=== PATIENT | female | born 1935 | race Caucasian/White ===

== ENCOUNTER 2020-12-12 07:37 | Inpatient (IN) ==
[~2020-12-12 07:37] MED LIST: IPRATROPIUM/ALBUTEROL 3 ML AMPUL.NEB NEB ONE
[2020-12-12] MEDS ORDERED: IOPAMIDOL 100 ML BOTTLE IV ONE (07:38)
[2020-12-12] MEDS ORDERED: IPRATROPIUM/ALBUTEROL 3 ML AMPUL.NEB NEB ONE (08:00)
[2020-12-12] MEDS ORDERED: PROCHLORPERAZINE 10 MG/2 ML VIAL IV ONE (08:05)
[2020-12-12] MEDS ORDERED: morphine 2 MG/ML VIAL IV ONE (08:05)
--- NOTE | 2020-12-12 08:13 | Emergency Department Note ---
SOB HPI General Chief Complaint: Shortness of Breath/Dyspnea Stated Complaint: shortnesss of breath/chest pain Time Seen by Provider: 12/12/20 07:51 Source: patient, EMS, RN notes reviewed and old records reviewed Mode of arrival: EMS Limitations: no limitations History of Present Illness HPI Narrative: Narrative: 85-year-old delightful female complains of increasing shortness of breath for the last 2 days. Night prior to arrival her shortness of breath increased considerably and she developed right-sided chest pain below her right breast that was worse with deep inspiration and movement and felt like her pulmonary embolism pain. She denies any fevers or chills she denies any cough she denies any hemoptysis she denies any sputum production. She has had no nausea or vomiting no sore throat no abdominal pain no bowel or bladder changes. She had outpatient spinal surgery on 11/29 week prior to arrival. She is on home O2 and she has been increasing the amount of oxygen she is using over the last 2 days. MD Complaint: shortness of breath and pain with inspiration Onset (ago): day(s) (2) Context: other (Back Surgery 11/29, outpatient) Severity: moderate Consistency/Duration: constant Improves with: oxygen Worsens with: inspiration Known history of: PE and other (A Fib) Associated symptoms: Reports chest pain, pain with inspiration, orthopnea, lower extremity pain and palpitations; Denies fever, cough, wheezing, sputum prod uction, polyuria, polydipsia, parasthesias, carpopedal spasm, hemoptysis, diaphoresis, nausea/vomiting, syncope, abdominal pain, rash and sense of impending doom Treatment prior to arrival: oxygen Related Data Home oxygen amount: 4 liters Home Medications Medication Instructions Recorded Confirmed acetaminophen 325 mg tablet See Rx Instructions PO .COMPLEX PRN 03/03/20 08/03/20 warfarin 10 mg tablet See Rx Instructions PO .COMPLEX 03/03/20 08/03/20 celecoxib 50 mg capsule 50 mg PO QDAY 08/03/20 08/03/20 Previous Rx's Medication Instructions Recorded enoxaparin 30 mg/0.3 mL 30 mg SUBCUT .COMPLEX #3.3 ml 11/30/20 subcutaneous syringe hydrocodone 5 mg-acetaminophen 325 1 - 2 tab PO Q4H PRN #20 tab 12/06/20 mg tablet Allergies Allergy/AdvReac Type Severity Reaction Status Date / Time adhesive tape Allergy Intermediate Hives Verified 12/12/20 07:48 epinephrine AdvReac Mild Anxiety Verified 12/12/20 07:48 Review of Systems ROS ROS Narrative: Narrative: Constitutional: Denies fever, chills, weakness and sweats Eyes: Denies vision change ENT ED: Denies throat pain Cardiovascular: Reports chest pain, palpitations, dyspnea on exertion, orthopnea, edema and paroxysmal nocturnal dyspnea; Denies syncope Respiratory: Reports shortness of breath; Denies cough, wheezes, phlegm, hemoptysis and stridor Gastrointestinal: Denies abdominal pain Genitourinary: Denies dysuria Musculoskeletal: Reports back pain Integumentary: Denies rash Neurological: Denies headache Psychiatric: Denies depression Endocrine: Denies fatigue Hematological/Lymphatic: Denies easy bruising Allergic/Immunologic: Denies urticaria PFSH Narrative Patient History Narrative: Narrative: Medical/Surgical/Family History All Active Problems (Updated 12/12/20 @ 13:31 by Karthikeyan Patel MD) CHF (congestive heart failure) (Acute) Lumbar stenosis with neurogenic claudication (Chronic) Personal history of other malignant neoplasm of skin (Chronic) Pulmonary embolism (Chronic ~2002) Radiculopathy, lumbar region (Chronic) Pain in left hip (Chronic) Radiculopathy, lumbosacral region (Chronic) Lightheadedness (Acute) Atrial fibrillation (Acute) Elevated LFTs (Acute) Dehydration (Acute) Obesity (BMI 30.0-34.9) (Chronic) Primary localized osteoarthritis of left hip (Chronic) Knee injury (Acute) Periorbital ecchymosis (Acute) Anticoagulant long-term use (Chronic) Medical History Anticoagulant long-term use coumadin, prior PE Lumbar stenosis with neurogenic claudication Obesity (BMI 30.0-34.9) Pain in left hip Personal history of other malignant neoplasm of skin Primary localized osteoarthritis of left hip Continue PT and pain management, d/c plan for home tomorrow Pulmonary embolism (~2002) X2 Radiculopathy, lumbar region Radiculopathy, lumbosacral region Surgical History History of surgery LESI #2 L3-4 w/o sed 02/16/20 LESI #1 L3-4 w/o sed 11/05/2019 TF BONY #2 Lt L4-5, L5-S1 w/o sed 12/26/17 LESI #1 L4-5 w/o sed 10/16/2017 Hip Joint Injection, left w/o sed 12/27/2016 TF BONY #1 L4-5, Left w/o sed 11/26/2016 TF BONY #1 L4-5, Right w/sed 02/01/2016 Intraarticular Joint Injection, Right w/o sed 05/12/2015 Intraarticular hip Injection, Right w/o sed 03/22/2015 Family History Other No pertinent family history Social History Smoking Status: Former smoker Exam Narrative Narrative: Narrative: General Limitations: no limitations General appearance: Present alert and in no apparent distress Head Head: Present atraumatic and normocephalic Eye Eye: Present normal appearance, PERRL and EOMI ENT ENT: Present normal exam and mucous membranes moist Neck Neck: Present normal inspection and full ROM Chest Chest: Present normal inspection and tenderness; Absent rash Respiratory Respiratory: Present normal lung sounds bilaterally and wheezes; Absent respiratory distress Cardiovascular Cardiovascular: Present regular rate, irregular rhythm and systolic murmur Adbominal Abdominal: Present soft; Absent distention, tenderness, guarding and rebound Extremities Extremities: Present normal inspection, full ROM and pretibial edema; Absent tenderness and pedal edema Back Back: Present normal inspection; Absent CVA tenderness (R) and CVA tenderness (L) Neurological Neurological: Present alert and oriented X3 Psychiatric Psychiatric: Present normal affect and normal mood Skin Skin: Present warm (WNL); Absent rash Course Vital Signs Vital signs: Vital Signs Temperature 97.9 F 12/12/20 07:44 Pulse Rate 84 12/12/20 07:44 Respiratory Rate 22 12/12/20 07:44 Blood Pressure 135/84 12/12/20 07:44 Pulse Oximetry (%) 93 12/12/20 07:44 Temperature 97.9 F 12/12/20 07:44 Pulse Rate 86 12/12/20 12:35 Respiratory Rate 17 12/12/20 12:35 Blood Pressure 106/70 12/12/20 12:35 Pulse Oximetry (%) 93 12/12/20 12:35 MDM MDM Narrative Medical decision making narrative: Narrative: 85-year-old female with complaints of shortness of breath and increased oxygen requirements at home. Patient had orthopnea PND and increased oxygen requirements. Chest x-ray shows increased interstitial infiltrates radiology was worried about pneumonia but she has had no fevers or chills no cough and has a normal white count I think this is less likely and I think it represents congestive heart failure BNP is elevated which also is suggestive of congestive heart failure. Patient received Lasix and when we attempted to ambulate the patient the pulse ox dropped into the low 80 percentiles. Diagnosis is acute dyspnea to his congestive heart failure the patient has been addressed for the possibility of PE but I find no signs or symptoms or suggestion of PE from the D-dimer or CT scan. Lab Data Lab results reviewed: Yes I reviewed the patient's lab results. Result diagrams: 12/12/20 08:16 12/12/20 08:16 Labs: Lab Results 12/12/20 12/12/20 12/12/20 Range/Units 08:16 08:16 08:16 WBC 4.6 (4.5-11.0) K/mcL RBC 4.88 (4.00-5.20) M/mcL Hgb 13.5 (12.0-15.0) g/dL Hct 48.2 H (36.0-48.0) % MCV 98.8 (80.0-100.0) fL MCH 27.7 (26.0-34.0) pg MCHC 28.0 L (31.0-36.0) g/dL RDW 13.6 (11.5-14.5) % Plt Count 98 L (140-440) K/mcL MPV 10.8 H (7.4-10.4) fL Neut % (Auto) 65.4 (38.0-78.0) % Lymph % (Auto) 15.1 (15.0-49.0) % [place] % (Auto) 16.8 H (1.0-12.0) % Eos % (Auto) 2.0 (0.0-7.0) % Baso % (Auto) 0.7 (0.0-2.0) % Lymph # (Auto) 0.69 L (1.50-4.80) K/mcL [place] # (Auto) 0.77 (0.10-0.90) K/mcL Eos # (Auto) 0.09 (0.00-0.70) K/mcL Baso # (Auto) 0.03 (0.00-0.20) K/mcL Absolute Neutrophils 3.00 (1.80-8.00) K/mcL PT 17.8 H (11.9-14.5) sec INR 1.4 H (0.9-1.1) D-Dimer 0.45 (0.27-0.50) ug/mL VBG Lactic Acid (0.5-2.0) mmol/L Sodium 141 (133-145) mmol/L Potassium 4.4 (3.3-5.1) mmol/L Chloride 101 (96-108) mmol/L Carbon Dioxide 34 H (22-30) mmol/L Anion Gap 6.0 L (8.0-16.0) BUN 14 (8-23) mg/dL Creatinine 0.8 (0.6-1.1) mg/dL POC Creatinine 0.8 (0.6-1.2) mg/dL GFR Calculation 68 Glucose 88 (70-105) mg/dL Calcium 8.9 (8.6-10.4) mg/dL Total Bilirubin 0.9 (0.1-1.0) mg/dL AST 30 (<32) U/L ALT 26 (<40) U/L Alkaline Phosphatase 87 (39-117) U/L Troponin T (<0.03) ng/mL NT-Pro-B Natriuret Pep 1091.0 H (<450.0) pg/mL Total Protein 6.7 (5.9-8.4) gm/dL Albumin 3.5 (3.2-5.2) gm/dL Globulin 3.2 (2.2-3.7) gm/dL Albumin/Globulin Ratio 1.1 (1.0-2.3) Urine Color Urine Appearance (Clear) Urine pH (5.0-9.0) Ur Specific [place] (1.000-1.035) Urine Protein (Negative) mg/dL Urine Glucose (UA) (Negative) mg/dL Urine Ketones (Negative) mg/dL Urine Occult Blood (Negative) mg/dL Urine Nitrate (Negative) Urine Bilirubin (Negative) mg/dL Urine Urobilinogen mg/dL Ur Leukocyte Esterase (Negative) /ug Ur Culture Indicated? 12/12/20 12/12/20 12/12/20 Range/Units 08:16 08:16 10:02 WBC (4.5-11.0) K/mcL RBC (4.00-5.20) M/mcL Hgb (12.0-15.0) g/dL Hct (36.0-48.0) % MCV (80.0-100.0) fL MCH (26.0-34.0) pg MCHC (31.0-36.0) g/dL RDW (11.5-14.5) % Plt Count (140-440) K/mcL MPV (7.4-10.4) fL Neut % (Auto) (38.0-78.0) % Lymph % (Auto) (15.0-49.0) % [place] % (Auto) (1.0-12.0) % Eos % (Auto) (0.0-7.0) % Baso % (Auto) (0.0-2.0) % Lymph # (Auto) (1.50-4.80) K/mcL [place] # (Auto) (0.10-0.90) K/mcL Eos # (Auto) (0.00-0.70) K/mcL Baso # (Auto) (0.00-0.20) K/mcL Absolute Neutrophils (1.80-8.00) K/mcL PT (11.9-14.5) sec INR (0.9-1.1) D-Dimer (0.27-0.50) ug/mL VBG Lactic Acid 0.7 (0.5-2.0) mmol/L Sodium (133-145) mmol/L Potassium (3.3-5.1) mmol/L Chloride (96-108) mmol/L Carbon Dioxide (22-30) mmol/L Anion Gap (8.0-16.0) BUN (8-23) mg/dL Creatinine (0.6-1.1) mg/dL POC Creatinine (0.6-1.2) mg/dL GFR Calculation Glucose (70-105) mg/dL Calcium (8.6-10.4) mg/dL Total Bilirubin (0.1-1.0) mg/dL AST (<32) U/L ALT (<40) U/L Alkaline Phosphatase (39-117) U/L Troponin T < 0.01 (<0.03) ng/mL NT-Pro-B Natriuret Pep (<450.0) pg/mL Total Protein (5.9-8.4) gm/dL Albumin (3.2-5.2) gm/dL Globulin (2.2-3.7) gm/dL Albumin/Globulin Ratio (1.0-2.3) Urine Color Yellow Urine Appearance Clear (Clear) Urine pH 8.0 (5.0-9.0) Ur Specific [place] 1.044 (1.000-1.035) Urine Protein Negative (Negative) mg/dL Urine Glucose (UA) Negative (Negative) mg/dL Urine Ketones Negative (Negative) mg/dL Urine Occult Blood Negative (Negative) mg/dL Urine Nitrate Negative (Negative) Urine Bilirubin Negative (Negative) mg/dL Urine Urobilinogen 4.0 A mg/dL Ur Leukocyte Esterase Negative (Negative) /ug Ur Culture Indicated? No Radiology Data Radiology results reviewed: Yes I reviewed the patient's radiology results. EKG Data EKG #1: Rate: normal (85) Rhythm: A.Fib [place]/QRS: LAHB/LAFB Interpretation: no acute changes Pulse Oximetry Data Pulse Ox %: 92 Interpretation: 92% on 4 L nasal cannula hypoxic. Discharge Plan Patient/Caregiver Discharge Instructions Pt seen by KILN HAND/PA only: No Clinical Impression: CHF (congestive heart failure) Patient Disposition: Xfer As Inpt ([facility]) Follow up with: Adrianna Rachel MD [Primary Care Provider] - Prescriptions: No Action celecoxib [Celebrex] 50 mg capsule 50 mg PO QDAY RF: 0 hydrocodone-acetaminophen 5-325 mg tablet 1 - 2 tab PO Q4H PRN (Reason: pain) Qty: 20 RF: 0 enoxaparin [Lovenox] 30 mg/0.3 mL syringe 30 mg subcut .COMPLEX Qty: 3.3 RF: 0 warfarin 10 mg tablet See Rx Instructions PO .COMPLEX RF: 0 acetaminophen 325 mg tablet See Rx Instructions PO .COMPLEX PRN (Reason: Pain) RF: 0
[2020-12-12 08:37] LABS: POC Creatinine 0.8 mg/dL (0.6-1.2)
[2020-12-12 09:14] LABS: Basophils # (Auto) 0.03 K/mcL (0.00-0.20); Basophils % (Auto) 0.7 % (0.0-2.0); Eosinophils # (Auto) 0.09 K/mcL (0.00-0.70); Hematocrit 48.2 % (36.0-48.0); Hemoglobin 13.5 g/dL (12.0-15.0); Lymphocytes # (Auto) 0.69 K/mcL (1.50-4.80); Lymphocytes % (Auto) 15.1 % (15.0-49.0); Mean Cell Volume 98.8 fL (80.0-100.0); Mean Platelet Volume 10.8 fL (7.4-10.4); Monocytes # (Auto) 0.77 K/mcL (0.10-0.90); Monocytes % (Auto) 16.8 % (1.0-12.0); Neutrophils % (Auto) 65.4 % (38.0-78.0); Platelet Count 98 K/mcL (140-440); RBC 4.88 M/mcL (4.00-5.20); Red Cell Distribution Width 13.6 % (11.5-14.5); WBC 4.6 K/mcL (4.5-11.0)
[2020-12-12 09:26] LABS: ALT/SGPT 26 U/L (<40); AST/SGOT 30 U/L (<32); Albumin 3.5 gm/dL (3.2-5.2); Albumin/Globulin Ratio 1.1 (1.0-2.3); Alkaline Phosphatase 87 U/L (39-117); Bilirubin,Total 0.9 mg/dL (0.1-1.0); Blood Urea Nitrogen 14 mg/dL (8-23); Calcium 8.9 mg/dL (8.6-10.4); Carbon Dioxide 34 mmol/L (22-30); Chloride 101 mmol/L (96-108); Globulin 3.2 gm/dL (2.2-3.7); Glomerular Filtration Rate 68; Glucose 88 mg/dL (70-105); INR 1.4 (0.9-1.1); Prothrombin Time 17.8 sec (11.9-14.5)
--- NOTE | 2020-12-12 10:15 | Cat Scan Report ---
CLINICAL INFORMATION: Right side chest pain with dyspnea COMPARISON: None. TECHNIQUE: 80ml of Isovue-370 were injected intravenously. Using SmartPrep to maximize pulmonary artery opacification, .625mm helical slices were obtained from the lung apices through the lung bases. Following reconstruction, 2.5 mm sagittal, coronal, and axial reformations were processed. The exam was reviewed at mediastinal, lung, and bone windows. The exam was performed using radiation dose optimization techniques including, but not limited to, automated exposure control, adjustment of the mA and/or kV according to patient size and use of iterative reconstruction technique. FINDINGS: Mediastinal windows show the heart is moderately enlarged with scattered calcific/fibrofatty atherosclerotic plaque in the coronary arteries. Moderate aortic valve calcification and minimal mitral valve calcification also noted. Thoracic aorta is normal in diameter. The central pulmonary arteries are mildly enlarged: the main pulmonary diameter 3.6 cm. Findings are suggestive, but not diagnostic, of pulmonary hypertension. Pulmonary arteries are opacified: no emboli identified. There is no adenopathy in the mediastinal, hilar or axillary regions. Small hiatal hernia noted. Thyroid is unremarkable. Pulmonary parenchymal windows show mild chronic bronchitis with elevated lung volumes wall thickening and dilatation of bronchi. There is also mosaic perfusion pattern throughout both lungs most compatible with superimposed small airways disease. Moderate patchy mixed alveolar/interstitial infiltrate throughout the left lower lobe is appreciated. Subsegmental atelectasis in the posterior segment left upper lobe along the major fissure is also appreciated. Small left pleural effusion noted. Subsegmental atelectasis present in the posterior right lower lobe. Bones and soft tissues the chest demonstrate moderate broad C6-7 disc spur complex resulting in severe bilateral lateral recess/ IV foraminal narrowing impinging impinging the C7 nerve roots. There is moderate central canal stenosis. Minimal chronic wedging mid lower thoracic vertebral bodies with endplate irregularity is compatible with mild chronic Scheuermann's disease noted. No soft tissue abnormality. Images should the superior abdomen show no abnormality IMPRESSION: 1. No evidence of pulmonary embolus. Mild enlargement of the central pulmonary arteries is suggestive of pulmonary hypertension related to chronic bronchitis. 2. Small patchy infiltrate left lower lobe and small effusion. Pneumonia suspected. There is minor atelectasis posterior right lower lobe. 3. Small hiatal hernia. 4. Moderate cardiomegaly with heavy calcification aortic valve and mild mitral valve calcification. There is minimal atherosclerotic plaque scattered in the coronary arteries. 5. C6-7: Moderate broad disc spur complex resulting in severe bilateral lateral recess/IV foraminal narrowing impinging the exiting C7 nerve roots. Moderate central canal stenosis Interpreted and Authenticated by: Leonid Magana 12/12/20
[2020-12-12] MEDS ORDERED: FUROSEMIDE 20 MG/2 ML VIAL IV ONE (10:26)
[2020-12-12 11:12] LABS: Appearance,Urine CLEAR (Clear); Bilirubin,Urine Negative (Negative); Color,Urine YELLOW; Culture Indicated,Urine No; Glucose,Urine (UA) Negative (Negative); Ketones,Urine Negative (Negative); Leukocyte Esterase,Urine Negative /ug (Negative); Nitrate,Urine Negative (Negative); Protein,Urine Negative (Negative); Specific Gravity,Urine 1.044 (1.000-1.035); Urine Blood Negative (Negative)
--- NOTE | 2020-12-12 13:53 | Internal Med History&Physical ---
HPI History of Present Illness Patient information: Note initiated : 12/12/20 at 1:51 pm Service Date, if different from initiated Date: [] Patient: Ryann Fortune 85 y/o F admitted on for SOB/Chest Pain. Chief Complaint: [] History of present illness: Ms. Fortune is a 85 year old F Presents to the ED with pleuritic chest pain on the right and shortness of breath. She typically wears 2 L of oxygen at night and that has for years. When she arrived for her lumbar procedure she was 80% was told to wear her oxygen today as well. Her daughter who is a therapist has been home with her since the procedure they did increase her oxygen up to 2-1/2 or 3 by the end of the week and then back to 2-1/2 her daughter left . Patient says she developed on right side chest pain on Saturday and today it was much worse and she also noted. Chest pain is worse breath on her lungs in the she was placed on 6 L by EMS. She was weaned down to 3 L of oxygen ED but an ABG still showed that she was hypoxic. On Saturday patient had an interspinous spacer placement by Ddr. Reilly. He denies fevers and chills she denies coughing or being around anyone is been sick. She has some which is. No change. Work-up in the ED CTA which showed no PE but did show chronic bronchitis changes. small infiltrate left lower lobe as well as a small effusion right lower lobe. Atelectasis noted in the right lower lobe and left. Patient denies feeling wheezy although in the ED the ER physician noted some wheezing. Patient did get a DuoNeb treatment but PFSH PFSH All Active Problems (Updated 12/12/20 @ 13:31 by Karthikeyan Patel MD) CHF (congestive heart failure) (Acute) Lumbar stenosis with neurogenic claudication (Chronic) Personal history of other malignant neoplasm of skin (Chronic) Pulmonary embolism (Chronic ~2002) Radiculopathy, lumbar region (Chronic) Pain in left hip (Chronic) Radiculopathy, lumbosacral region (Chronic) Lightheadedness (Acute) Atrial fibrillation (Acute) Elevated LFTs (Acute) Dehydration (Acute) Obesity (BMI 30.0-34.9) (Chronic) Primary localized osteoarthritis of left hip (Chronic) Knee injury (Acute) Periorbital ecchymosis (Acute) Anticoagulant long-term use (Chronic) Medical History Anticoagulant long-term use coumadin, prior PE Lumbar stenosis with neurogenic claudication Obesity (BMI 30.0-34.9) Pain in left hip Personal history of other malignant neoplasm of skin Primary localized osteoarthritis of left hip Continue PT and pain management, d/c plan for home tomorrow Pulmonary embolism (~2002) X2 Radiculopathy, lumbar region Radiculopathy, lumbosacral region Surgical History History of surgery LESI #2 L3-4 w/o sed 02/16/20 LESI #1 L3-4 w/o sed 11/05/2019 TF BONY #2 Lt L4-5, L5-S1 w/o sed 12/26/17 LESI #1 L4-5 w/o sed 10/16/2017 Hip Joint Injection, left w/o sed 12/27/2016 TF BONY #1 L4-5, Left w/o sed 11/26/2016 TF BONY #1 L4-5, Right w/sed 02/01/2016 Intraarticular Joint Injection, Right w/o sed 05/12/2015 Intraarticular hip Injection, Right w/o sed 03/22/2015 Family History Other No pertinent family history Social History smoking status: Former smoker MEDS/ALLERGIES Home Medications and Allergies Home Medications Medication Instructions Recorded Confirmed Type acetaminophen 325 mg tablet See Rx Instructions PO .COMPLEX PRN 03/03/20 0 History warfarin 10 mg tablet See Rx Instructions PO .COMPLEX 03/03/20 08/03/20 History celecoxib 50 mg capsule 50 mg PO QDAY 08/03/20 08/03/20 History enoxaparin 30 mg/0.3 mL 30 mg SUBCUT .COMPLEX #3.3 ml 11/30/20 11/30/20 Rx subcutaneous syringe hydrocodone 5 mg-acetaminophen 325 1 - 2 tab PO Q4H PRN #20 tab 12/06/20 12/06/20 Rx mg tablet Allergies Allergy/AdvReac Type Severity Reaction Status Date / Time adhesive tape Allergy Intermediate Hives Verified 12/12/20 07:48 epinephrine AdvReac Mild Anxiety Verified 12/12/20 07:48 EXAM Constitutional Vitals: Temp Pulse Resp BP Pulse Ox 97.9 F 86 17 106/70 93 12/12/20 07:44 12/12/20 12:35 12/12/20 12:35 12/12/20 12:35 12/12/20 12:35 Exam: General: Alert, Awake, No acute Distress, obse Eyes/N/T: EOMI, PERRL, HJR noted Head/Neck: neck supple, normocephalic atraumatic CV: irreg irreg, 2/6SM, normal s1/s2 Pulm: Clear b/l, no wheezing/rhonchi/rales Abd: soft, nontender, +BS x4 Ext: no clubbing/cyanosis, 1+ b/l LE edema Neuro: Alert, no focal deficits, moves all extremities, CN 2-12 grossly intact, symmetrical strength b/l upper/lower, sensations intact b/l upper/lower Skin: warm/dry DATA Data Completed and Pending Labs: Labs from last 24 hours 12/12/20 12/12/20 12/12/20 10:02 08:16 08:16 WBC RBC Hgb Hct MCV MCH MCHC RDW Plt Count MPV Neut % (Auto) Lymph % (Auto) [place] % (Auto) Eos % (Auto) Baso % (Auto) Lymph # (Auto) [place] # (Auto) Eos # (Auto) Baso # (Auto) Absolute Neutrophils PT INR D-Dimer VBG Lactic Acid 0.7 Sodium Potassium Chloride Carbon Dioxide Anion Gap BUN Creatinine POC Creatinine GFR Calculation Glucose Calcium Total Bilirubin AST ALT Alkaline Phosphatase Troponin T < 0.01 NT-Pro-B Natriuret Pep Total Protein Albumin Globulin Albumin/Globulin Ratio Urine Color Yellow Urine Appearance Clear Urine pH 8.0 Ur Specific [place] 1.044 Urine Protein Negative Urine Glucose (UA) Negative Urine Ketones Negative Urine Occult Blood Negative Urine Nitrate Negative Urine Bilirubin Negative Urine Urobilinogen 4.0 A Ur Leukocyte Esterase Negative Ur Culture Indicated? No 12/12/20 12/12/20 12/12/20 08:16 08:16 08:16 WBC 4.6 RBC 4.88 Hgb 13.5 Hct 48.2 H MCV 98.8 MCH 27.7 MCHC 28.0 L RDW 13.6 Plt Count 98 L MPV 10.8 H Neut % (Auto) 65.4 Lymph % (Auto) 15.1 [place] % (Auto) 16.8 H Eos % (Auto) 2.0 Baso % (Auto) 0.7 Lymph # (Auto) 0.69 L [place] # (Auto) 0.77 Eos # (Auto) 0.09 Baso # (Auto) 0.03 Absolute Neutrophils 3.00 PT 17.8 H INR 1.4 H D-Dimer 0.45 VBG Lactic Acid Sodium 141 Potassium 4.4 Chloride 101 Carbon Dioxide 34 H Anion Gap 6.0 L BUN 14 Creatinine 0.8 POC Creatinine 0.8 GFR Calculation 68 Glucose 88 Calcium 8.9 Total Bilirubin 0.9 AST 30 ALT 26 Alkaline Phosphatase 87 Troponin T NT-Pro-B Natriuret Pep 1091.0 H Total Protein 6.7 Albumin 3.5 Globulin 3.2 Albumin/Globulin Ratio 1.1 Urine Color Urine Appearance Urine pH Ur Specific [place] Urine Protein Urine Glucose (UA) Urine Ketones Urine Occult Blood Urine Nitrate Urine Bilirubin Urine Urobilinogen Ur Leukocyte Esterase Ur Culture Indicated? A/P Narrative A/P Narrative: A: *Acute hypoxic respiratory failure: multifactorial>?peripheral PE not found on CT (right pleuritic cp similar to when had PE)+ Atelectasis + suspected CHF + underlying COPD lung changes. -no pneumonia clinically -was subtherapeutic with her warfarin *suspected acute on chronic diastolic CHF *likely COPD based on smoking history and image findings *supp O2 at home: has been on 2L@night for 4-years, but prior to procedure was noted to be hypoxic on vital check, pt was asymptomatic. was told to wear day/night O2. *Pulm HTN: *AFib: Subtherapeutic warfarin *Thrombocytopenia, chronic: *Obesity: * P: -O2 supp, placed on bipap for several hours after admit -Lovenox warfarin bridge -f/u ABG -IS - -pt/ot -f/u with pulmonology for PFT's -ppx: lovenox-warfarin per pharm full code Time Spent With Patient Time: Total time spent is greater than 50% in coordination of care (as documented) at patient's floor/unit and/or counseling patient:
[2020-12-12] MEDS ORDERED: LORazepam 2 MG/ML VIAL IV ONE (14:47)
[2020-12-12] MEDS ORDERED: ENOXAPARIN 120 MG/0.8 ML SYRINGE SQ ONE (14:47)
[2020-12-12] MEDS ORDERED: IPRATROPIUM/ALBUTEROL 3 ML AMPUL.NEB NEB PRN (14:47)
[2020-12-12] MEDS ORDERED: POTASSIUM CHLORIDE 20 MEQ TABLET PO PRN ×2 (14:47)
[2020-12-12] MEDS ORDERED: IPRATROPIUM/ALBUTEROL 3 ML AMPUL.NEB NEB SCH (14:47)
[2020-12-12] MEDS ORDERED: ONDANSETRON 4 MG/2 ML VIAL IV PRN (14:47)
[2020-12-12] MEDS ORDERED: MAGNESIUM SULFATE 2 GM/50 ML BAG IV PRN (14:47)
[2020-12-12] MEDS ORDERED: SENNOSIDES 1 TABLET PO PRN (14:47)
[2020-12-12] MEDS ORDERED: HYDROcodone/APAP 5/325MG TABLET PO PRN (14:47)
[2020-12-12] MEDS ORDERED: POTASSIUM CHLORIDE 40 MEQ in DEXTROSE 5% IN WATER 500 ML IV PRN (14:47)
[2020-12-12] MEDS ORDERED: WARFARIN 5 MG TABLET PO ONE (17:00)
[2020-12-12] MEDS: 0.9 % SODIUM CHLORIDE 10 ML SYRINGE IV SCH ×2 (19:00→22:07)
[2020-12-12] MEDS: IPRATROPIUM/ALBUTEROL 3 ML AMPUL.NEB NEB SCH (21:12)
[2020-12-12] MEDS: ACETAMINOPHEN 325 MG TABLET PO PRN (22:10)
[2020-12-12] MEDS: DOCUSATE SODIUM 100 MG CAPSULE PO SCH (22:10)
[2020-12-13] MEDS: 0.9 % SODIUM CHLORIDE 10 ML SYRINGE IV SCH ×3 (06:07→21:30)
[2020-12-13 06:54] LABS: Basophils # (Auto) 0.05 K/mcL (0.00-0.20); Basophils % (Auto) 1.3 % (0.0-2.0); Eosinophils # (Auto) 0.11 K/mcL (0.00-0.70); Eosinophils % (Auto) 2.8 % (0.0-7.0); Hematocrit 45.7 % (36.0-48.0); Hemoglobin 13.2 g/dL (12.0-15.0); Lymphocytes # (Auto) 0.91 K/mcL (1.50-4.80); Lymphocytes % (Auto) 23.5 % (15.0-49.0); Mean Cell Volume 96.2 fL (80.0-100.0); Mean Corpuscular HGB Conc 28.9 g/dL (31.0-36.0); Mean Platelet Volume 11.4 fL (7.4-10.4); Monocytes # (Auto) 0.88 K/mcL (0.10-0.90); Monocytes % (Auto) 22.7 % (1.0-12.0); Neutrophils % (Auto) 49.7 % (38.0-78.0); Platelet Count 92 K/mcL (140-440); RBC 4.75 M/mcL (4.00-5.20); Red Cell Distribution Width 13.5 % (11.5-14.5); WBC 3.9 K/mcL (4.5-11.0)
[2020-12-13 06:59] LABS: INR 1.4 (0.9-1.1); Prothrombin Time 17.8 sec (11.9-14.5)
[2020-12-13 07:30] LABS: ALT/SGPT 19 U/L (<40); AST/SGOT 25 U/L (<32); Albumin 3.4 gm/dL (3.2-5.2); Albumin/Globulin Ratio 1.1 (1.0-2.3); Alkaline Phosphatase 80 U/L (39-117); Bilirubin,Direct 0.3 mg/dL (<0.3); Bilirubin,Total 0.9 mg/dL (0.1-1.0); Blood Urea Nitrogen 14 mg/dL (8-23); Carbon Dioxide 35 mmol/L (22-30); Chloride 100 mmol/L (96-108); Globulin 3.1 gm/dL (2.2-3.7); Glomerular Filtration Rate 80; Glucose 77 mg/dL (70-105); Lactate Dehydrogenase 223 U/L (135-225); Phosphorous 3.6 mg/dL (2.5-4.5); Triglycerides 53 mg/dL (<150); Uric Acid 4.9 mg/dL (2.5-8.0)
--- NOTE | 2020-12-13 07:46 | Internal Med Progress Note ---
SUBJECTIVE Subjective Patient information: Note initiated : 12/13/20 at 7:42 am Service Date, if different from initiated Date: [] Patient: Ryann Fortune 85 y/o F admitted on 12/12/20 for SOB/Chest Pain. Chief Complaint: [] Interval history: History of present illness: Ms. Fortune is a 85 year old F Presents to the ED with pleuritic chest pain on the right and shortness of breath. She typically wears 2 L of oxygen at night and that has for years. When she arrived for her lumbar procedure she was 80% was told to wear her oxygen today as well. Her daughter who is a therapist has been home with her since the procedure they did increase her oxygen up to 2-1/2 or 3 by the end of the week and then back to 2-1/2 her daughter left . Patient says she developed on right side chest pain on Saturday and today it was much worse and she also noted. Chest pain is worse breath on her lungs in the she was placed on 6 L by EMS. She was weaned down to 3 L of oxygen ED but an ABG still showed that she was hypoxic. On Saturday patient had an interspinous spacer placement by Ddr. Reilly. He denies fevers and chills she denies coughing or being around anyone is been sick. She has some which is. No change. Work-up in the ED CTA which showed no PE but did show chronic bronchitis changes. small infiltrate left lower lobe as well as a small effusion right lower lobe. Atelectasis noted in the right lower lobe and left. Patient denies feeling wheezy although in the ED the ER physician noted some wheezing. Patient did get a DuoNeb treatment but 12/13 No overnight event or new complaints. Right-sided chest pain is improving. Review of Systems: denies headache/fever/chills/nausea/vomiting/abdominal pain/cough/diarrhea. Otherwise see above. Constitutional Vitals: Vital Signs Temp Pulse Resp BP Pulse Ox 97.8 F 74 15 122/65 91 12/13/20 04:10 12/13/20 06:00 12/13/20 06:00 12/13/20 06:00 12/13/20 07:28 Period Temp Pulse Resp BP Sys/[place] Pulse Ox Last 24 Hr 97.2 F-98.3 F 60-100 12-23 83-135/51-93 90-98 Intake and Output 12/12/20 12/13/20 12/13/20 21:59 05:59 13:59 Intake Total 120 Output Total 400 325 200 Balance -400 -205 -200 Weight 115.893 kg Intake & Output: Intake & Output 12/12/20 12/13/20 12/13/20 21:59 05:59 13:59 Intake Total 120 Output Total 400 325 200 Balance -400 -205 -200 Weight 115.893 kg Intake: Oral 120 Output: Void Amount 400 325 200 Other: Meal Dinner Percent of Meal Consumed 100% Feeding Ability Independent Urine Appearance Clear Urine Color Dark Yellow Dark Yellow Bright Yellow Urine Odor Normal # Voids 1 Exam: General: Alert, Awake, No acute Distress, obese Eyes/N/T: EOMI, Head/Neck: neck supple, CV: irreg irreg, 2/6SM, Pulm: Clear b/l, no wheezing/rhonchi/rales Abd: soft, nontender, +BS x4 Ext: no clubbing/cyanosis, 1+ b/l LE edema Neuro: Alert, no focal deficits, moves all extremities, Skin: warm/dry OBJ DATA Labs CBC & Chem 7: 12/13/20 05:13 12/13/20 05:13 Labs: Abnormal Lab Results 12/13/20 12/13/20 12/13/20 05:13 05:13 05:13 WBC 3.9 L Hct MCHC 28.9 L Plt Count 92 L MPV 11.4 H [place] % (Auto) 22.7 H Lymph # (Auto) 0.91 L PT 17.8 H INR 1.4 H Carbon Dioxide 35 H Anion Gap 6.0 L Direct Bilirubin 0.3 H NT-Pro-B Natriuret Pep Urine Urobilinogen 12/12/20 12/12/20 12/12/20 10:02 08:16 08:16 WBC Hct 48.2 H MCHC 28.0 L Plt Count 98 L MPV 10.8 H [place] % (Auto) 16.8 H Lymph # (Auto) 0.69 L PT 17.8 H INR 1.4 H Carbon Dioxide Anion Gap Direct Bilirubin NT-Pro-B Natriuret Pep Urine Urobilinogen 4.0 A 12/12/20 08:16 WBC Hct MCHC Plt Count MPV [place] % (Auto) Lymph # (Auto) PT INR Carbon Dioxide 34 H Anion Gap 6.0 L Direct Bilirubin NT-Pro-B Natriuret Pep 1091.0 H Urine Urobilinogen Meds: Medications Acetaminophen (Acetaminophen 325 Mg Tablet) 650 mg PO Q6HP PRN PRN Reason: PAIN/FEVER > 101 Last Admin: 12/12/20 22:10 Dose: 650 mg Documented by: Hydrocodone Bitart/Acetaminophen (Hydrocodone/Apap 5/325mg Tablet) 1 tab PO Q4HP PRN PRN Reason: PAIN LEVEL 3-6 Albuterol/Ipratropium (Ipratropium/Albuterol 3 Ml Ampul.Neb) 3 ml NEB Q4HP PRN PRN Reason: Shortness Of Breath Albuterol/Ipratropium (Ipratropium/Albuterol 3 Ml Ampul.Neb) 3 ml NEB Q12H [facility] Last Admin: 12/12/20 21:12 Dose: 3 ml Documented by: Docusate Sodium (Docusate Sodium 100 Mg Capsule) 100 mg PO BID [facility] Last Admin: 12/12/20 22:10 Dose: 100 mg Documented by: Enoxaparin Sodium (Enoxaparin 120 Mg/0.8 Ml Syringe) 120 mg SQ BID [facility] Potassium Chloride 40 meq/ (Dextrose) 520 mls @ 130 mls/hr IV UD PRN PRN Reason: Potassium < 3 Magnesium Sulfate (Magnesium Sulfate) 2 gm in 50 mls @ 50 mls/hr IV UD PRN PRN Reason: Magnesium </= 1.6 Ondansetron HCl (Ondansetron 4 Mg/2 Ml Vial) 4 mg IV Q4HP PRN PRN Reason: Nausea And Vomiting Potassium Chloride (Potassium Chloride 20 Meq Tablet) 40 meq PO UD PRN PRN Reason: Potssium is 3-3.5 Potassium Chloride (Potassium Chloride 20 Meq Tablet) 40 meq PO UD PRN PRN Reason: Potassium < 3 Senna (Sennosides 1 Tablet) 2 tab PO DAILYP PRN PRN Reason: Constipation Sodium Chloride (0.9 % Sodium Chloride 10 Ml Syringe) 10 ml IV Q8 [facility] Last Admin: 12/13/20 06:07 Dose: 10 ml Documented by: Warfarin Sodium (Warfarin Per Pharmacy) 1 order PO UD RUTHY A/P Narrative A/P Narrative: A: *Acute hypoxic respiratory failure: multifactorial>?peripheral PE not found on CT (right pleuritic cp & similar to when had PE)+ Atelectasis + suspected CHF + underlying COPD lung changes. -no pneumonia clinically -was subtherapeutic with her warfarin -on 2-4 Oxymask, was on 6L in ED *suspected acute on chronic diastolic CHF: *likely COPD based on smoking history and image findings *supp O2 at home: has been on 2L@night for 4-years, but prior to procedure was noted to be hypoxic on vital check, pt was asymptomatic. was told to wear day/night O2. *Pulm HTN: *AFib: Subtherapeutic warfarin *Thrombocytopenia, chronic: *Obesity: * P: -O2 supp, unable to tolerated bipap on admit -Lovenox warfarin bridge -f/u ABG and CXR -echo pending -prn diuresis -IS -pt/ot -f/u with pulmonology for PFT's and LOREN evaluation -ppx: lovenox-warfarin per pharm (monitor PLT's) full code Time Spent With Patient Time: Total time spent is greater than 50% in coordination of care (as documented) at patient's floor/unit and/or counseling patient: [facility]ALITY VTE Deep Vein Thrombosis/Pulmonary Embolism Present on Admission: No
[2020-12-13] MEDS ORDERED: acetaZOLAMIDE SOD 500 MG VIAL IV ONE (07:51)
[2020-12-13] MEDS: DOCUSATE SODIUM 100 MG CAPSULE PO SCH ×2 (07:52→20:16)
[2020-12-13] MEDS ORDERED: ENOXAPARIN 120 MG/0.8 ML SYRINGE SQ SCH ×2 (09:00→21:00)
[2020-12-13] MEDS ORDERED: FUROSEMIDE 20 MG/2 ML VIAL IV ONE (09:13)
[2020-12-13] MEDS ORDERED: HYDROCHLOROTHIAZIDE 12.5 MG CAPSULE PO ONE (09:13)
[2020-12-13] MEDS: IPRATROPIUM/ALBUTEROL 3 ML AMPUL.NEB NEB SCH ×2 (09:27→20:19)
--- NOTE | 2020-12-13 09:46 | XRay Report ---
CLINICAL INFORMATION: Mild CHF - follow-up COMPARISON: 09/23/2019 FINDINGS: Moderate cardiomegaly is stable. Mediastinum and pulmonary vasculature are unremarkable. Moderate subglottic narrowing noted. Small infiltrate has developed in the left base. Small effusion IMPRESSION: Small infiltrate and effusion developing the left lower lobe Moderate cardiomegaly - no CHF Moderate subglottic narrowing - please correlate with stridor Interpreted and Authenticated by: Leondi Magana 12/13/20
[2020-12-13] MEDS ORDERED: WARFARIN 10 MG PO SCH (14:00)
[2020-12-13] MEDS ORDERED: WARFARIN 5 MG TABLET PO ONE (14:00)
--- NOTE | 2020-12-13 16:53 | Discharge Summary ---
Discharge Provider Provider Patient information: Note initiated : 12/13/20 at 4:51 pm Service Date, if different from initiated Date: [] Patient: Ryann Fortune 85 y/o F admitted on 12/12/20 for SOB/Chest Pain. Chief Complaint: [] Date of admission: 12/12/20 14:44 Discharge date: 12/14/20 Primary care physician: Adrianna Rachel Consults: 12/12/20 Consult to Physician [CONS] Stat Comment: Consulting Provider: Ghulam Morton Reason For Exam: Physician to Consult Discharge Meds Discharge Medications Home Medications acetaminophen 325 mg tablet 325 mg PO Q4-6HP PRN 03/03/20 [History Confirmed 12/12/20 Last Taken Unknown] warfarin 10 mg tablet 10 mg PO MOTUWEFRSA@1400 03/03/20 [History Confirmed 12/12/20 Last Taken 12/10/20 09:00] warfarin 5 mg PO SUTH@1400 12/12/20 [History Confirmed 12/12/20 Last Taken 12/11/20 09:00] enoxaparin [Lovenox] 100 mg SUBCUT Q12H #3 ml 12/14/20 [Rx Last Taken Unknown] COURSE Hospital Course Hospital course: Interval history: History of present illness: Ms. Fortune is a 85 year old F Presents to the ED with pleuritic chest pain on the right and shortness of breath. She typically wears 2 L of oxygen at night and that has for years. When she arrived for her lumbar procedure she was 80% was told to wear her oxygen today as well. Her daughter who is a therapist has been home with her since the procedure they did increase her oxygen up to 2-1/2 or 3 by the end of the week and then back to 2-1/2 her daughter left . Patient says she developed on right side chest pain on Saturday and today it was much worse and she also noted. Chest pain is worse breath on her lungs in the she was placed on 6 L by EMS. She was weaned down to 3 L of oxygen ED but an ABG still showed that she was hypoxic. On Saturday patient had an interspinous spacer placement by Ddr. Reilly. He denies fevers and chills she denies coughing or being around anyone is been sick. She has some which is. No change. Work-up in the ED CTA which showed no PE but did show chronic bronchitis changes. small infiltrate left lower lobe as well as a small effusion right lower lobe. Atelectasis noted in the right lower lobe and left. Patient denies feeling wheezy although in the ED the ER physician noted some wheezing. Patient did get a DuoNeb treatment but 12/13 No overnight event or new complaints. Right-sided chest pain is improving. 12/14 Patient doing well. Oxygenation much improved. Patient stable standpoint able to be discharged. A: *Acute hypoxic respiratory failure: multifactorial>?peripheral PE not found on CT (right pleuritic cp & similar to when had PE)+ Atelectasis + suspected CHF + underlying COPD lung changes. *suspected mild acute on chronic diastolic CHF: -echo with good EF, LVH, RV dilation but good fxn, LAE *likely COPD based on smoking history and image findings *supp O2 at home: has been on 2L@night for 4-years, but prior to procedure was noted to be hypoxic on vital check, pt was asymptomatic. was told to wear day/night O2. *Pulm HTN: *AFib: Subtherapeutic warfarin *Thrombocytopenia, chronic: *Obesity: * Discharge diagnosis: Acute hypoxic respiratory failure COPD possible heart Secondary discharge diagnosis: Patient A. fib thrombocytopenia obesity Time Spent with Patient Time attestation: Total time spent providing and/or coordinating discharge services: Time spent: Greater than 30 minutes EXAM Constitutional Vitals: Temp Pulse Resp BP Pulse Ox 98.3 F 88 21 95/63 96 12/13/20 16:01 12/13/20 16:07 12/13/20 16:07 12/13/20 16:01 12/13/20 16:07 Discharge Data Data Completed and Pending Labs on day of discharge: Labs from last 24 hours 12/13/20 12/13/20 12/13/20 05:13 05:13 05:13 WBC 3.9 L RBC 4.75 Hgb 13.2 Hct 45.7 MCV 96.2 MCH 27.8 MCHC 28.9 L RDW 13.5 Plt Count 92 L MPV 11.4 H Neut % (Auto) 49.7 Lymph % (Auto) 23.5 [place] % (Auto) 22.7 H Eos % (Auto) 2.8 Baso % (Auto) 1.3 Lymph # (Auto) 0.91 L [place] # (Auto) 0.88 Eos # (Auto) 0.11 Baso # (Auto) 0.05 Absolute Neutrophils 1.92 PT 17.8 H INR 1.4 H Sodium 141 Potassium 3.8 Chloride 100 Carbon Dioxide 35 H Anion Gap 6.0 L BUN 14 Creatinine 0.7 GFR Calculation 80 Glucose 77 Uric Acid 4.9 Calcium 9.0 Phosphorus 3.6 Magnesium 2.1 Total Bilirubin 0.9 Direct Bilirubin 0.3 H GGT 23 AST 25 ALT 19 Alkaline Phosphatase 80 Lactate Dehydrogenase 223 Total Protein 6.5 Albumin 3.4 Globulin 3.1 Albumin/Globulin Ratio 1.1 Triglycerides 53 Discharge Plan Patient/Caregiver Discharge Instructions Activity: increase activity as tolerated Diet: Regular Diet Instructions: Heart Failure (GEN), Hypoxia (GEN) Activity Restrictions/Additional Instructions: Referral to see pulmonology in 5 to 14 days for LOREN evaluation and PFTs This discharge packet is provided to you to help keep you informed about your care. We want to ensure you get everything you need when you go home. You will also be receiving a call from us in a few days to follow up with you and see how you are doing since your discharge. This gives us a chance to listen to any concerns you maybe experiencing since you were discharged or any additional needs you may have, as well as providing us feedback on your care experience. We strive to always provide excellent care and thank you for your feedback and for choosing [facility]. Prescriptions: New enoxaparin [Lovenox] 100 mg/mL syringe 100 mg subcut Q12H Qty: 3 RF: 0 Continued warfarin 10 mg tablet 10 mg PO MOTUWEFRSA@1400 RF: 0 acetaminophen 325 mg tablet 325 mg PO Q4-6HP PRN (Reason: Pain) RF: 0 warfarin 5 mg Tablet 5 mg PO SUTH@1400 RF: 0 Follow Up Plan Follow up with: Adrianna Rachel MD [Primary Care Provider] - 12/22/20 10:00 am (Please check in at 9:45) Patient Disposition: Home, Self-Care Prognosis: Fair Overall status at discharge: patient is progressing back to baseline Discharge Orders: Discharge Order (Routine); Ordered 12/14/20 [facility]/Pulmonary Embolism Present on Admission: No
[2020-12-13] MEDS: ACETAMINOPHEN 325 MG TABLET PO PRN (21:40)
[2020-12-14] MEDS: 0.9 % SODIUM CHLORIDE 10 ML SYRINGE IV SCH (05:42)
[2020-12-14 07:17] LABS: Basophils # (Auto) 0.03 K/mcL (0.00-0.20); Basophils % (Auto) 0.8 % (0.0-2.0); Eosinophils # (Auto) 0.09 K/mcL (0.00-0.70); Eosinophils % (Auto) 2.4 % (0.0-7.0); Hematocrit 45.3 % (36.0-48.0); Hemoglobin 13.4 g/dL (12.0-15.0); Lymphocytes # (Auto) 0.86 K/mcL (1.50-4.80); Lymphocytes % (Auto) 22.6 % (15.0-49.0); Mean Corpuscular HGB Conc 29.6 g/dL (31.0-36.0); Mean Platelet Volume 11.1 fL (7.4-10.4); Monocytes # (Auto) 0.74 K/mcL (0.10-0.90); Monocytes % (Auto) 19.5 % (1.0-12.0); Neutrophils % (Auto) 54.7 % (38.0-78.0); Platelet Count 96 K/mcL (140-440); RBC 4.72 M/mcL (4.00-5.20); Red Cell Distribution Width 13.4 % (11.5-14.5); WBC 3.8 K/mcL (4.5-11.0)
[2020-12-14 07:31] LABS: INR 1.6 (0.9-1.1); Prothrombin Time 19.5 sec (11.9-14.5)
--- NOTE | 2020-12-14 07:51 | Internal Med Progress Note ---
SUBJECTIVE Subjective Patient information: Note initiated : 12/14/20 at 7:50 am Service Date, if different from initiated Date: [] Patient: Ryann Fortune 85 y/o F admitted on 12/12/20 for SOB/Chest Pain. Chief Complaint: [] Interval history: History of present illness: Ms. Fortune is a 85 year old F Presents to the ED with pleuritic chest pain on the right and shortness of breath. She typically wears 2 L of oxygen at night and that has for years. When she arrived for her lumbar procedure she was 80% was told to wear her oxygen today as well. Her daughter who is a therapist has been home with her since the procedure they did increase her oxygen up to 2-1/2 or 3 by the end of the week and then back to 2-1/2 her daughter left . Patient says she developed on right side chest pain on Saturday and today it was much worse and she also noted. Chest pain is worse breath on her lungs in the she was placed on 6 L by EMS. She was weaned down to 3 L of oxygen ED but an ABG still showed that she was hypoxic. On Saturday patient had an interspinous spacer placement by Ddr. Reilly. He denies fevers and chills she denies coughing or being around anyone is been sick. She has some which is. No change. Work-up in the ED CTA which showed no PE but did show chronic bronchitis changes. small infiltrate left lower lobe as well as a small effusion right lower lobe. Atelectasis noted in the right lower lobe and left. Patient denies feeling wheezy although in the ED the ER physician noted some wheezing. Patient did get a DuoNeb treatment but 12/13 No overnight event or new complaints. Right-sided chest pain is improving. Review of Systems: denies headache/fever/chills/nausea/vomiting/abdominal pain/cough/diarrhea. Otherwise see above. Constitutional Vitals: Vital Signs Temp Pulse Resp BP Pulse Ox 97.4 F 74 18 116/74 98 12/14/20 04:01 12/14/20 06:01 12/14/20 06:01 12/14/20 06:01 12/14/20 06:01 Period Temp Pulse Resp BP Sys/[place] Pulse Ox Last 24 Hr 97.2 F-98.3 F 69-159 15-29 95-125/57-80 88-99 Intake and Output 12/13/20 12/14/20 12/14/20 21:59 05:59 13:59 Intake Total 520 250 Output Total 575 700 400 Balance -55 -450 -400 Weight 113.942 kg Intake & Output: Intake & Output 12/13/20 12/14/20 12/14/20 21:59 05:59 13:59 Intake Total 520 250 Output Total 575 700 400 Balance -55 -450 -400 Weight 113.942 kg Intake: Oral 520 250 Output: Void Amount 575 700 400 Other: Meal snack Percent of Meal Consumed 100% Feeding Ability Independent Urine Appearance Clear Clear Clear Urine Color Dark Yellow Straw Bright Yellow Urine Odor Normal Normal # Voids 1 1 Exam: General: Alert, Awake, No acute Distress, obese Eyes/N/T: EOMI, Head/Neck: neck supple, CV: irreg irreg, 2/6SM, Pulm: Clear b/l, no wheezing/rhonchi/rales Abd: soft, nontender, +BS x4 Ext: no clubbing/cyanosis, 1+ b/l LE edema Neuro: Alert, no focal deficits, moves all extremities, Skin: warm/dry OBJ DATA Labs CBC & Chem 7: 12/14/20 06:02 12/13/20 05:13 Labs: Abnormal Lab Results 12/14/20 12/14/20 12/13/20 06:02 06:02 05:13 WBC 3.8 L Hct MCHC 29.6 L Plt Count 96 L MPV 11.1 H [place] % (Auto) 19.5 H Lymph # (Auto) 0.86 L PT 19.5 H INR 1.6 H Carbon Dioxide 35 H Anion Gap 6.0 L Direct Bilirubin 0.3 H NT-Pro-B Natriuret Pep Urine Urobilinogen 12/13/20 12/13/20 12/12/20 05:13 05:13 10:02 WBC 3.9 L Hct MCHC 28.9 L Plt Count 92 L MPV 11.4 H [place] % (Auto) 22.7 H Lymph # (Auto) 0.91 L PT 17.8 H INR 1.4 H Carbon Dioxide Anion Gap Direct Bilirubin NT-Pro-B Natriuret Pep Urine Urobilinogen 4.0 A 12/12/20 12/12/20 12/12/20 08:16 08:16 08:16 WBC Hct 48.2 H MCHC 28.0 L Plt Count 98 L MPV 10.8 H [place] % (Auto) 16.8 H Lymph # (Auto) 0.69 L PT 17.8 H INR 1.4 H Carbon Dioxide 34 H Anion Gap 6.0 L Direct Bilirubin NT-Pro-B Natriuret Pep 1091.0 H Urine Urobilinogen Meds: Medications Acetaminophen (Acetaminophen 325 Mg Tablet) 650 mg PO Q6HP PRN PRN Reason: PAIN/FEVER > 101 Last Admin: 12/13/20 21:40 Dose: 650 mg Documented by: Hydrocodone Bitart/Acetaminophen (Hydrocodone/Apap 5/325mg Tablet) 1 tab PO Q4HP PRN PRN Reason: PAIN LEVEL 3-6 Albuterol/Ipratropium (Ipratropium/Albuterol 3 Ml Ampul.Neb) 3 ml NEB Q4HP PRN PRN Reason: Shortness Of Breath Albuterol/Ipratropium (Ipratropium/Albuterol 3 Ml Ampul.Neb) 3 ml NEB Q12H [facility] Last Admin: 12/13/20 20:19 Dose: 3 ml Documented by: Docusate Sodium (Docusate Sodium 100 Mg Capsule) 100 mg PO BID [facility] Last Admin: 12/13/20 20:16 Dose: 100 mg Documented by: Enoxaparin Sodium (Enoxaparin 120 Mg/0.8 Ml Syringe) 110 mg SQ BID [facility] Last Admin: 12/13/20 20:16 Dose: 110 mg Documented by: Potassium Chloride 40 meq/ (Dextrose) 520 mls @ 130 mls/hr IV UD PRN PRN Reason: Potassium < 3 Magnesium Sulfate (Magnesium Sulfate) 2 gm in 50 mls @ 50 mls/hr IV UD PRN PRN Reason: Magnesium </= 1.6 Ondansetron HCl (Ondansetron 4 Mg/2 Ml Vial) 4 mg IV Q4HP PRN PRN Reason: Nausea And Vomiting Potassium Chloride (Potassium Chloride 20 Meq Tablet) 40 meq PO UD PRN PRN Reason: Potssium is 3-3.5 Potassium Chloride (Potassium Chloride 20 Meq Tablet) 40 meq PO UD PRN PRN Reason: Potassium < 3 Senna (Sennosides 1 Tablet) 2 tab PO DAILYP PRN PRN Reason: Constipation Sodium Chloride (0.9 % Sodium Chloride 10 Ml Syringe) 10 ml IV Q8 [facility] Last Admin: 12/14/20 05:42 Dose: 10 ml Documented by: Warfarin Sodium (Warfarin Per Pharmacy) 1 order PO UD RUTHY A/P Narrative A/P Narrative: A: *Acute hypoxic respiratory failure: multifactorial>?peripheral PE not found on CT (right pleuritic cp & similar to when had PE)+ Atelectasis + suspected CHF + underlying COPD lung changes. -no pneumonia clinically -was subtherapeutic with her warfarin -on 2-4 Oxymask, was on 6L in ED *suspected acute on chronic diastolic CHF: -echo with good EF, LVH, RV dilation but good fxn, LAE *likely COPD based on smoking history and image findings *supp O2 at home: has been on 2L@night for 4-years, but prior to procedure was noted to be hypoxic on vital check, pt was asymptomatic. was told to wear day/night O2. *Pulm HTN: *AFib: Subtherapeutic warfarin *Thrombocytopenia, chronic: *Obesity: * P: -O2 supp, unable to tolerated bipap on admit -Lovenox warfarin bridge -f/u ABG and CXR -echo pending -prn diuresis -IS -pt/ot -f/u with pulmonology for PFT's and LOREN evaluation -ppx: lovenox-warfarin per pharm (monitor PLT's) full code Time Spent With Patient Time: Total time spent is greater than 50% in coordination of care (as documented) at patient's floor/unit and/or counseling patient: QUALITY VTE Deep Vein Thrombosis/Pulmonary Embolism Present on Admission: No
[2020-12-14 08:06] LABS: ALT/SGPT 15 U/L (<40); AST/SGOT 20 U/L (<32); Albumin 3.3 gm/dL (3.2-5.2); Albumin/Globulin Ratio 1.1 (1.0-2.3); Alkaline Phosphatase 76 U/L (39-117); Bilirubin,Direct 0.2 mg/dL (<0.3); Bilirubin,Total 0.6 mg/dL (0.1-1.0); Blood Urea Nitrogen 14 mg/dL (8-23); Calcium 9.3 mg/dL (8.6-10.4); Carbon Dioxide 35 mmol/L (22-30); Chloride 98 mmol/L (96-108); Globulin 3.1 gm/dL (2.2-3.7); Glomerular Filtration Rate 68; Glucose 81 mg/dL (70-105); Lactate Dehydrogenase 207 U/L (135-225); Phosphorous 3.6 mg/dL (2.5-4.5); Triglycerides 55 mg/dL (<150); Uric Acid 5.4 mg/dL (2.5-8.0)
[2020-12-14] MEDS ORDERED: ENOXAPARIN 100 MG/ML SYRINGE SQ SCH (09:00)
[2020-12-14] MEDS: IPRATROPIUM/ALBUTEROL 3 ML AMPUL.NEB NEB SCH (09:07)
[2020-12-14] MEDS: DOCUSATE SODIUM 100 MG CAPSULE PO SCH (09:09)
[2020-12-14] MEDS ORDERED: WARFARIN 5 MG TABLET PO ONE (14:00)
[2020-12-15] MEDS ORDERED: WARFARIN 5 MG TABLET PO SCH (14:00)
== END 2020-12-14 13:34 | disposition home or self-care (01) | DRG 189 ==
LOC: ED 07:37 → ICU 14:44
PROVIDERS: ADMIT Internal Medicine; ATTEND Internal Medicine